=== PATIENT | female | born 2000 | race American Indian/Alaskan Native ===

== ENCOUNTER 2022-01-11 21:14 | Emergency (ER) | payer MEDICAID ==
[2022-01-11 21:51] VITALS: BP 128/63
[2022-01-11 22:14] LABS: Bilirubin,Urine NEG (Negative); Blood,Urine NEG (Negative); Color,Urine Yellow (Yellow); Mucus,Urine FEW /HPF; Protein,Urine <15 mg/dL mg/dL (Negative); Urobilinogen,Urine < 2.0 mg/dL (<2.0)
[2022-01-11 22:15] LABS: HCG Qualitative,Urine Negative (Negative)
== END 2022-01-12 00:16 | disposition left against medical advice (07) ==
LOC: EDSEX → ED 21:14
DX: R52 Pain, unspecified (principal); Z53.21 Procedure and treatment not carried out due to patient leaving prior to being seen by health care provider
CPT/HCPCS: 81001; 81025; 87086